=== PATIENT | female | born 1975 ===

== ENCOUNTER → 2017-04-20 | Outpatient (CLI) | payer MEDICAID ==
[2017-04-20 11:55] VITALS: BP 96/79; PULSE 78; RESP 16; TEMP 98; BMI 30.4
[2017-04-20 13:31] LABS: HCT 42.7 % (34.0-46.0); HGB 14.4 gm/dL (11.4-16.0); MCH 31.9 pg (25.0-35.0); MCHC 33.6 g/dL (31.0-37.0); MCV 95.1 fL (80.0-100.0); Mean Platelet Volume 7.3; Platelet Count 262 k/uL (150-450); RBC 4.49 m/uL (3.80-5.40); WBC 6.5 k/uL (3.8-10.6)
[2017-04-20 13:39] LABS: INR 1.1 (<1.2); Partial Thromboplastin Time 23.9 sec (22.0-30.0); Prothrombin Time 11.1 sec (9.0-12.0)
[2017-04-20 13:47] LABS: ALT 27 U/L (9-52); AST 20 U/L (14-36); Albumin 4.4 g/dL (3.5-5.0); Alkaline Phosphatase 56 U/L (38-126); Anion Gap 9 mmol/L; Blood Urea Nitrogen 16 mg/dL (7-17); Calcium 9.8 mg/dL (8.4-10.2); Carbon Dioxide 29 mmol/L (22-30); Chloride 101 mmol/L (98-107); Cholesterol 222 mg/dL (<200); Glucose 107 mg/dL (74-99); HDL Cholesterol 87 mg/dL (40-60); LDL Cholesterol,Calculated 118 mg/dL (0-99); Magnesium 1.8 mg/dL (1.6-2.3); Phosphorous 4.4 mg/dL (2.5-4.5); Potassium 3.6 mmol/L (3.5-5.1); Sodium 139 mmol/L (137-145); Total Bilirubin 0.6 mg/dL (0.2-1.3); Total Protein 7.1 g/dL (6.3-8.2); Triglycerides 86 mg/dL (<150)
[2017-04-20 18:40] LABS: Iron Saturation 24.48 (12.00-45.00)
[2017-04-20 19:26] LABS: Folate, Serum 17.7 ng/mL
[2017-04-20 20:29] LABS: Parathyroid Hormone Intact 40.9 pg/mL (14.0-72.0)
[2017-04-20 20:43] LABS: Hemoglobin A1C 5.3 % (4.0-6.0)
[2017-04-21 12:58] LABS: Zinc, Serum 74 ug/dL (60-130)
[2017-04-24 05:26] LABS: Vitamin B1 45 ug/L (38-122)
[2017-04-24 05:43] LABS: Vitamin A 48 ug/dL (38-106)
[2017-04-26 19:59] LABS: Selenium 127 mcg/L (63-160)
--- NOTE | 2017-06-18 15:23 | P.HPBAR ---
Bariatric H&P - History & Physicial H&P Date: 04/20/17 History & Physicial: Visit/CC: sleeve done in [facility]. Pt pursuing panni Patient initial contact: Initial weight: Initial weight in pounds: Height: 5 ft 1.5 in Initial BMI: Last weight: Current weight: 74.134 kg Current weight in pounds: 163.00 Current BMI: 30.4 [place] body weight (based on NIH guidelines): 48.761 kg Excess body weight loss: The patient is a 42 year-old F who presents for Bariatric Assessment. DATE OF SERVICE: 04/20/2017 REASON FOR CONSULTATION: Panniculitis. HISTORY OF PRESENT ILLNESS: The patient is a 42-year-old female who had a sleeve gastrectomy [facility]. Her highest weight for her 5 foot 1.5 inch frame was 233.3 pounds. Her previous body mass index was 43.5. Today she comes in weighing 163 pounds. She has lost 70 pounds. Body mass index is down from 43.5 to 30.4. She reports moderate discomfort from her pannus. She has a chronic itching including back pain as a resul of her pannus. She has not had recent follow-up with her bariatric provider. Now she presents for further evaluation for possible panniculectomy. At her height of 5 foot 1.5 inches, ideal body weight is 131 pounds. Percent excess weight loss is 69%. She has maintained 70 pound weight loss. PAST MEDICAL HISTORY: 1. Morbid obesity. 2. Body mass index down from 43.5 to 30.4. PAST SURGICAL HISTORY: 1. Sleeve gastrectomy. HOME MEDICATIONS: 1. Multivitamin. ALLERGIES: Denies. SOCIAL HISTORY: No active tobacco use. FAMILY HISTORY: No family history of ulcerative colitis disease or Crohn's disease. Family history of morbid obesity. No lupus in family. No reports of stomach or esophageal cancer. REVIEW OF ORGAN SYSTEMS: CONSTITUTIONAL: At her height of 5 foot 1.5 inches, ideal body weight is 131 pounds. Percent excess weight loss is 69%. She has maintained 70 pound weight loss. Her highest weight for her 5 foot 1.5 inch frame was 233.3 pounds. Her previous body mass index was 43.5. Today she comes in weighing 163 pounds. Body mass index is down from 43.5 to 30.4. HEENT: Denies any active troubles with vision or hearing. No troubles with swallowing. ENDOCRINE: No diabetes. No hypothyroidism. CARDIOVASCULAR: No reports of palpitations or heart attacks or chest pain. History of hypertension. RESPIRATORY: No sleep apnea. No asthma. GI: Denies any bright red blood per rectum. No report of diarrhea but has constipation. MUSCULOSKELETAL: Has lower back pain and joint pain. NEURO: No headaches. No seizure disorders. PSYCH: No acute depression. No anxiety. RHEUMATOLOGIC: No lupus. No rheumatoid arthritis. HEMATOLOGIC: Denies any abnormal bleeding or bruising. No personal history of DVTs. SKIN: No rash. No skin cancer. PHYSICAL EXAM: VITAL SIGNS: Height 5 foot 1.5 inches, weight 163 pounds. BMI 30.4 Vital Signs Temp 98 F 04/20/17 11:42 Pulse 78 04/20/17 11:42 Resp 16 04/20/17 11:42 BP 96/79 04/20/17 11:42 Pulse Ox GENERAL: Well-developed in no acute distress. HEENT: No scleral icterus. Extraocular movements grossly intact. Hears conversational speech. No nasal drainage. NECK: Supple without lymphadenopathy. CHEST: Nonlabored respirations with equal bilateral excursions. CARDIOVASCULAR: Regular rate, regular rhythm. Distal 2+ pulses. ABDOMEN: Obese, soft, nontender, nondistended. Pannus of hyperemia over 5 pounds. Pannus over pubis 5 cm. MUSCULOSKELETAL: No clubbing, cyanosis. Gross strength 5/5 distal lower extremities. No pre-tibial pitting edema. NEURO: No focal or lateralizing signs. Cranial nerves 2 through 12 grossly within normal limits. PSYCH: Appropriate affect. Alert and oriented to person, place and time. SKIN: Good skin turgor. Well perfused. ASSESSMENT: 1. Morbid obesity due to excess calories. 2. Body mass index of 43.5 down to 30.4. 3. Osteoarthritis of lower back. 4. Panniculitis. 5. Status post sleeve gastrectomy. PLAN: 1. Recommend nystatin powder for panniculitis. 2. Recommend bariatric metabolic panel for nutritional deficiencies. 3. Benefits and risks of panniculectomy with described including bleeding, infection, pain, seromas, flap failure, cosmetic deformity. 4. Time off work at least 6 weeks. 5. MARIAN drain care described. 6. Will need high-protein low caloric diet 2 weeks prior to surgery to maximize wound healing. 7. Overnight hospitalization advised. 8. Will need correction of nutritional deficiencies. Laboratory Last Values WBC 6.5 k/uL (3.8-10.6) 04/20/17 13:06 RBC 4.49 m/uL (3.80-5.40) 04/20/17 13:06 Hgb 14.4 gm/dL (11.4-16.0) 04/20/17 13:06 Hct 42.7 % (34.0-46.0) 04/20/17 13:06 MCV 95.1 fL (80.0-100.0) 04/20/17 13:06 MCH 31.9 pg (25.0-35.0) 04/20/17 13:06 MCHC 33.6 g/dL (31.0-37.0) 04/20/17 13:06 RDW 13.0 % (11.5-15.5) 04/20/17 13:06 Plt Count 262 k/uL (150-450) 04/20/17 13:06 PT 11.1 sec (9.0-12.0) 04/20/17 13:06 INR 1.1 (<1.2) 04/20/17 13:06 APTT 23.9 sec (22.0-30.0) 04/20/17 13:06 Sodium 139 mmol/L (137-145) 04/20/17 13:06 Potassium 3.6 mmol/L (3.5-5.1) 04/20/17 13:06 Chloride 101 mmol/L (98-107) 04/20/17 13:06 Carbon Dioxide 29 mmol/L (22-30) 04/20/17 13:06 Anion Gap 9 mmol/L 04/20/17 13:06 BUN 16 mg/dL (7-17) 04/20/17 13:06 Creatinine 0.76 mg/dL (0.52-1.04) 04/20/17 13:06 Est GFR (MDRD) Af Amer >60 (>60 ml/min/1.73 sqM) 04/20/17 13:06 Est GFR (MDRD) Non-Af >60 (>60 ml/min/1.73 sqM) 04/20/17 13:06 Glucose 107 mg/dL (74-99) H 04/20/17 13:[address] Glu mg/dL 105 04/20/17 13:06 Hemoglobin A1c 5.3 % (4.0-6.0) 04/20/17 13:06 Calcium 9.8 mg/dL (8.4-10.2) 04/20/17 13:06 Phosphorus 4.4 mg/dL (2.5-4.5) 04/20/17 13:06 Magnesium 1.8 mg/dL (1.6-2.3) 04/20/17 13:06 Iron 82 ug/dL (50-170) 04/20/17 13:06 TIBC 335 ug/dL (228-460) 04/20/17 13:06 Iron Saturation 24.48 (12.00-45.00) 04/20/17 13:06 Ferritin 17.4 ng/mL (10.0-291.0) 04/20/17 13:06 Total Bilirubin 0.6 mg/dL (0.2-1.3) 04/20/17 13:06 AST 20 U/L (14-36) 04/20/17 13:06 ALT 27 U/L (9-52) 04/20/17 13:06 Alkaline Phosphatase 56 U/L (38-126) 04/20/17 13:06 Total Protein 7.1 g/dL (6.3-8.2) 04/20/17 13:06 Albumin 4.4 g/dL (3.5-5.0) 04/20/17 13:06 Prealbumin 23.0 mg/dL (18.0-42.0) 04/20/17 13:06 Triglycerides 86 mg/dL (<150) 04/20/17 13:06 Cholesterol 222 mg/dL (<200) H 04/20/17 13:06 LDL Cholesterol, Calc 118 mg/dL (0-99) H 04/20/17 13:06 HDL Cholesterol 87 mg/dL (40-60) H 04/20/17 13:06 Vitamin A 48 ug/dL (38-106) 04/20/17 13:06 Vitamin B1 45 ug/L (38-122) 04/20/17 13:06 Vitamin B12 600.0 pg/mL (200.0-944.0) 04/20/17 13:06 Vitamin D 25-Hydroxy 32.0 ng/mL (30.0-100.0) 04/20/17 13:06 Folate 17.7 ng/mL 04/20/17 13:06 TSH 0.430 mIU/L (0.465-4.680) L 04/20/17 13:06 PTH Intact 40.9 pg/mL (14.0-72.0) 04/20/17 13:06 Copper 1046 ug/L (810-1990) 04/20/17 13:06 Selenium 127 mcg/L (63-160) 04/20/17 13:06 Zinc 74 ug/dL (60-130) 04/20/17 13:06 Past Medical History History of Any Multi-Drug Resistant Organisms: None Reported Smoking Status: Unknown if ever smoked Surgical - Exam Vital Signs Temp Pulse Resp BP 98 F 78 16 96/79 04/20/17 11:42 04/20/17 11:42 04/20/17 11:42 04/20/17 11:42 Results - Labs 04/20/17 13:06 04/20/17 13:06 Bariatric Checklist Checklist: Plan: Checklist: EGD: 1. Hiatal hernia: 2. H. Pylori: HgbA1c: Vitamin D: Smoking: Unknown if ever smoked Primary care physician referral: Psychiatry clearance: Cardiology clearance: Sleep study: Diet journal: VTE risk score: VTE risk level: Rehab needs at discharge:
== END | disposition home or self-care (01) ==
LOC: BARWHC3 11:01
PROVIDERS: ATTEND Surgery Plastic and Reconstructive Surgery
DX: M79.3 Panniculitis, unspecified (principal); M47.816 Spondylosis without myelopathy or radiculopathy, lumbar region; E66.01 Morbid (severe) obesity due to excess calories; E21.1 Secondary hyperparathyroidism, not elsewhere classified; E89.1 Postprocedural hypoinsulinemia; K90.9 Intestinal malabsorption, unspecified; E55.9 Vitamin D deficiency, unspecified; K76.9 Liver disease, unspecified; N19 Unspecified kidney failure; K50.90 Crohn's disease, unspecified, without complications; Z68.30 Body mass index [BMI] 30.0-30.9, adult; Z79.899 Other long term (current) drug therapy; Z98.84 Bariatric surgery status
CPT/HCPCS: 36415; 80053; 80061; 82306; 82525; 82607; 82728; 82746; 83036; 83540; 83550; 83735; 83970; 84100; 84134; 84255; 84425; 84443; 84590; 84630; 85027; 85610; 85730; 99211

== ENCOUNTER → 2017-09-14 | Outpatient (CLI) | payer MEDICAID ==
[2017-09-14 15:46] VITALS: BP 101/62; PULSE 97; TEMP 98.2; BMI 29.9
--- NOTE | 2017-10-01 22:52 | P.PN ---
Subjective Progress Note Date: 09/14/17 DATE OF SERVICE: 09/14/2017 REASON FOR CONSULTATION: Panniculitis. HISTORY OF PRESENT ILLNESS: Domo Alex is a 42-year-old female who had a sleeve gastrectomy [facility]. She is maintained over 60% weight loss beyond 1 year. She has had chronic skin infections from her pannus despite treatment for over a year. Now she presents for panniculectomy. Her highest weight for her 5 foot 1.5 inch frame was 233.3 pounds. Her previous body mass index was 43.5. Today she comes in weighing 161 pounds. She has lost 72 pounds. Body mass index is down from 43.5 to 30.0. At her height of 5 foot 1.5 inches, ideal body weight is 131 pounds. Percent excess weight loss is 71 %. She has maintained 72 pound weight loss. She has lost 2 pounds in 5 months. PAST MEDICAL HISTORY: 1. Morbid obesity. 2. Body mass index down from 43.5 to 30.0. PAST SURGICAL HISTORY: 1. Sleeve gastrectomy. HOME MEDICATIONS: 1. Multivitamin. ALLERGIES: Denies. SOCIAL HISTORY: No active tobacco use. FAMILY HISTORY: No family history of ulcerative colitis disease or Crohn's disease. Family history of morbid obesity. No lupus in family. No reports of stomach or esophageal cancer. REVIEW OF ORGAN SYSTEMS: CONSTITUTIONAL: Her highest weight for her 5 foot 1.5 inch frame was 233.3 pounds. Her previous body mass index was 43.5. Today she comes in weighing 161 pounds. She has lost 72 pounds. Body mass index is down from 43.5 to 30.0. At her height of 5 foot 1.5 inches, ideal body weight is 131 pounds. Percent excess weight loss is 71 %. She has maintained 72 pound weight loss. She has lost 2 pounds in 5 months. HEENT: Denies any active troubles with vision or hearing. No troubles with swallowing. ENDOCRINE: No diabetes. No hypothyroidism. CARDIOVASCULAR: No reports of palpitations or heart attacks or chest pain. History of hypertension. RESPIRATORY: No sleep apnea. No asthma. GI: Denies any bright red blood per rectum. No report of diarrhea but has constipation. MUSCULOSKELETAL: Has lower back pain and joint pain. NEURO: No headaches. No seizure disorders. PSYCH: No acute depression. No anxiety. RHEUMATOLOGIC: No lupus. No rheumatoid arthritis. HEMATOLOGIC: Denies any abnormal bleeding or bruising. No personal history of DVTs. SKIN: No rash. No skin cancer. PHYSICAL EXAM: VITAL SIGNS: Height 5 foot 1.5 inches, weight 161 pounds. BMI 30.0 Vital Signs Temp 98.2 F 09/14/17 15:42 Pulse 97 09/14/17 15:42 Resp BP 101/62 09/14/17 15:42 Pulse Ox GENERAL: Well-developed in no acute distress. HEENT: No scleral icterus. Extraocular movements grossly intact. Hears conversational speech. No nasal drainage. NECK: Supple without lymphadenopathy. CHEST: Nonlabored respirations with equal bilateral excursions. CARDIOVASCULAR: Regular rate, regular rhythm. Distal 2+ pulses. ABDOMEN: Obese, soft, nontender, nondistended. Pannus weight over 5 pounds. Hyperemia present. MUSCULOSKELETAL: No clubbing, cyanosis. Gross strength 5/5 distal lower extremities. No pre-tibial pitting edema. NEURO: No focal or lateralizing signs. Cranial nerves 2 through 12 grossly within normal limits. PSYCH: Appropriate affect. Alert and oriented to person, place and time. SKIN: Good skin turgor. Well perfused. ASSESSMENT: 1. Morbid obesity due to excess calories. 2. Body mass index of 43.5 down to 30.0. 3. Osteoarthritis of lower back. 4. Panniculitis. 5. Status post sleeve gastrectomy. PLAN: 1. She has maintained over 70% excess weight loss beyond 1 year. 2. She has used nystatin powder for more than 6 months with improvement of symptoms. 3. Recommend panniculectomy. Benefits and risks of panniculectomy with described including bleeding, infection, pain, seromas, flap failure, cosmetic deformity. 4. MARIAN drain care described. 5. Will need high-protein low caloric diet 2 weeks prior to surgery to maximize wound healing. Objective - Vital Signs Vital signs: Vital Signs Temp 98.2 F 09/14/17 15:42 Pulse 97 09/14/17 15:42 Resp BP 101/62 09/14/17 15:42 Pulse Ox - Labs CBC & Chem 7: 09/14/17 12:28 09/14/17 12:28
== END | disposition home or self-care (01) ==
LOC: BARWHC3 11:04
PROVIDERS: ATTEND Surgery Plastic and Reconstructive Surgery
DX: Z09 Encounter for follow-up examination after completed treatment for conditions other than malignant neoplasm (principal); E66.01 Morbid (severe) obesity due to excess calories; M79.3 Panniculitis, unspecified; L98.8 Other specified disorders of the skin and subcutaneous tissue; M47.9 Spondylosis, unspecified; Z98.84 Bariatric surgery status; Z68.30 Body mass index [BMI] 30.0-30.9, adult; Z79.899 Other long term (current) drug therapy
CPT/HCPCS: 99211

== ENCOUNTER 2017-10-09 06:11 | Inpatient (IN) | payer MEDICAID ==
[2017-09-28 17:43] VITALS: BMI 30.1
[~2017-10-09 06:11] MED LIST: DEXAMETHASONE SOD PHOSPHATE 10 MG/ML 1 ML VIAL IV ONE; LACTATED RINGERS 1,000 ML IV SCH; LIDOCAINE 1% 20 ML VIAL (10MG/ML) FOR IV START INTRADERMA PRN; ONDANSETRON ODT 4 MG TAB PO ONE; SCOPOLAMINE 1.5MG/72HR PATCH TRANSDERM ONE; ceFAZolin IN SWFI 2 GM/20 ML SYRINGE IVP ONE
--- NOTE | 2017-10-09 07:30 | P.GSHP ---
History of Present Illness H&P Date: 10/09/17 DATE OF SERVICE: 10/09/2017 REASON FOR CONSULTATION: Panniculitis. HISTORY OF PRESENT ILLNESS: Domo Alex is a 42-year-old female who had a sleeve gastrectomy [facility]. She is maintained over 60% weight loss beyond 1 year. She has had chronic skin infections from her pannus despite treatment for over a year. Now she presents for panniculectomy. Her highest weight for her 5 foot 1.5 inch frame was 233.3 pounds. Her previous body mass index was 43.5. Today she comes in weighing 161 pounds. She has lost 72 pounds. Body mass index is down from 43.5 to 30.0. At her height of 5 foot 1.5 inches, ideal body weight is 131 pounds. Percent excess weight loss is 71 %. She has maintained 72 pound weight loss. She has lost 2 pounds in 5 months. PAST MEDICAL HISTORY: 1. Morbid obesity. 2. Body mass index down from 43.5 to 30.0. PAST SURGICAL HISTORY: 1. Sleeve gastrectomy. HOME MEDICATIONS: 1. Multivitamin. ALLERGIES: Denies. SOCIAL HISTORY: No active tobacco use. FAMILY HISTORY: No family history of ulcerative colitis disease or Crohn's disease. Family history of morbid obesity. No lupus in family. No reports of stomach or esophageal cancer. REVIEW OF ORGAN SYSTEMS: CONSTITUTIONAL: Her highest weight for her 5 foot 1.5 inch frame was 233.3 pounds. Her previous body mass index was 43.5. Today she comes in weighing 161 pounds. She has lost 72 pounds. Body mass index is down from 43.5 to 30.0. At her height of 5 foot 1.5 inches, ideal body weight is 131 pounds. Percent excess weight loss is 71 %. She has maintained 72 pound weight loss. She has lost 2 pounds in 5 months. HEENT: Denies any active troubles with vision or hearing. No troubles with swallowing. ENDOCRINE: No diabetes. No hypothyroidism. CARDIOVASCULAR: No reports of palpitations or heart attacks or chest pain. History of hypertension. RESPIRATORY: No sleep apnea. No asthma. GI: Denies any bright red blood per rectum. No report of diarrhea but has constipation. MUSCULOSKELETAL: Has lower back pain and joint pain. NEURO: No headaches. No seizure disorders. PSYCH: No acute depression. No anxiety. RHEUMATOLOGIC: No lupus. No rheumatoid arthritis. HEMATOLOGIC: Denies any abnormal bleeding or bruising. No personal history of DVTs. SKIN: No rash. No skin cancer. PHYSICAL EXAM: VITAL SIGNS: Height 5 foot 1.5 inches, weight 161 pounds. BMI GENERAL: Well-developed in no acute distress. HEENT: No scleral icterus. Extraocular movements grossly intact. Hears conversational speech. No nasal drainage. NECK: Supple without lymphadenopathy. CHEST: Nonlabored respirations with equal bilateral excursions. CARDIOVASCULAR: Regular rate, regular rhythm. Distal 2+ pulses. ABDOMEN: Obese, soft, nontender, nondistended. Pannus weight over 5 pounds. Hyperemia present. MUSCULOSKELETAL: No clubbing, cyanosis. Gross strength 5/5 distal lower extremities. No pre-tibial pitting edema. NEURO: No focal or lateralizing signs. Cranial nerves 2 through 12 grossly within normal limits. PSYCH: Appropriate affect. Alert and oriented to person, place and time. SKIN: Good skin turgor. Well perfused. ASSESSMENT: 1. Morbid obesity due to excess calories. 2. Body mass index of 43.5 down to 30.0. 3. Osteoarthritis of lower back. 4. Panniculitis. 5. Status post sleeve gastrectomy. PLAN: 1. She has maintained over 70% excess weight loss beyond 1 year. 2. She has used nystatin powder for more than 6 months with improvement of symptoms. 3. Recommend panniculectomy. Benefits and risks of panniculectomy with described including bleeding, infection, pain, seromas, flap failure, cosmetic deformity. 4. MARIAN drain care described. 5. Will need high-protein low caloric diet 2 weeks prior to surgery to maximize wound healing. Past Medical History Past Medical History: Asthma, Hyperlipidemia Additional Past Medical History / Comment(s): HX gestational diabetes. XAVIER VARICOSE VEINS TREATED. PANNUS History of Any Multi-Drug Resistant Organisms: MRSA Date of last positivie culture/infection: 2009 MDRO Source:: groin Past Surgical History: Bariatric Surgery, Section, Tubal Ligation Additional Past Surgical History / Comment(s): 08/2015 sleeve gastrectomy. Vein Stripping, ABLATED GREATER SAFFENOUS XAVIER AND LESSER XAVIER. c section x 3 Past Anesthesia/Blood Transfusion Reactions: Previous Problems w/ Anesthesia Additional Past Anesthesia/Blood Transfusion Reaction / Comment(s): AWAKENED DURING EXTUBATION Smoking Status: Never smoker - Past Family History Mother Family Medical History: Deep Vein Thrombosis (DVT) Medications and Allergies Home Medications Medication Instructions Recorded Confirmed Type Cholecalciferol [Vitamin D3] 6,000 unit PO DAILY 07/12/17 10/09/17 History Krill Oil 500 mg PO BID 07/12/17 10/09/17 History L.acidoph,Paracasei, B.lactis 1 cap PO DAILY 07/12/17 10/09/17 History [Probiotic] Multivitamin with Iron 1 tab PO DAILY 07/12/17 10/09/17 History [Multivitamins with Iron] Bcp (Unsure Name) 1 tab PO DAILY 09/28/17 10/09/17 History Cetirizine HCl [Zyrtec] 10 mg PO DAILY PRN 09/28/17 10/09/17 History Ferrous Sulfate [Feosol] 325 mg PO Q24H 09/28/17 10/09/17 History Montelukast [Singulair] 10 mg PO DAILY PRN 09/28/17 10/09/17 History valACYclovir HCL [Valtrex] 2,000 mg PO Q12HR PRN 09/28/17 10/09/17 History Allergies Allergy/AdvReac Type Severity Reaction Status Date / Time apple Allergy Rash/Hives Verified 10/09/17 06:27 Beef Containing Products Allergy Dyspnea Verified 10/09/17 06:27 [Beef] latex Allergy Dyspnea Verified 10/09/17 06:27 mold Allergy Dyspnea Verified 10/09/17 06:27 morphine Allergy Rash/Hives Verified 10/09/17 06:27 shellfish derived [Lobster] AdvReac Dyspnea Verified 10/09/17 06:27 Surgical - Exam Vital Signs Temp Pulse BP Pulse Ox 97.7 F 59 L 113/77 100 10/09/17 06:36 10/09/17 06:36 10/09/17 06:36 10/09/17 06:36
[2017-10-09] MEDS ORDERED: LACTATED RINGERS 1,000 ML IV ONE (09:58)
[2017-10-09] MEDS ORDERED: METOCLOPRAMIDE 5 MG/ML 2 ML VIAL IVP PRN (10:16)
[2017-10-09] MEDS ORDERED: HYDROcodone/APAP 5-325MG 1 EACH TAB PO PRN (10:16)
[2017-10-09] MEDS ORDERED: ACETAMINOPHEN IV (For NPO) 1,000 MG in EMPTY BAG 1 BAG IVPB ONE (10:16)
[2017-10-09] MEDS ORDERED: TRIMETHOBENZAMIDE 100 MG/ML 2 ML VIAL IM PRN (10:16)
[2017-10-09] MEDS ORDERED: NALOXONE 0.4 MG/ML 1 ML VIAL IV PRN (10:16)
[2017-10-09] MEDS ORDERED: ONDANSETRON 4 MG/2 ML VIAL IVP PRN ×2 (10:16)
--- NOTE | 2017-10-09 10:16 | P.OP ---
Date of Procedure: 10/09/17 Description of Procedure: SURGEON: IRIS MATSON MD PREOPERATIVE DIAGNOSES: 1. Morbid obesity due to excess calories. 2. Body mass index of 43.5 down to 30.0. 3. Osteoarthritis of lower back. 4. Panniculitis. 5. Status post sleeve gastrectomy. 6. Central adiposity POSTOPERATIVE DIAGNOSES: 1. Morbid obesity due to excess calories. 2. Body mass index of 43.5 down to 30.0. 3. Osteoarthritis of lower back. 4. Panniculitis. 5. Status post sleeve gastrectomy. 6. Central adiposity OPERATION: 1. Panniculectomy, 4.04 pounds. ANESTHESIA: General ESTIMATED BLOOD LOSS: 100 mL SPECIMENS REMOVED: Pannus 4.04 pounds. COMPLICATIONS: None. CONDITION: Stable. DRAINS: Two #19 Iraj drains below abdominal flap extending through the pubis. OPERATIVE FINDINGS: 1. Pannus weighing 4.04 pounds, excised. INDICATIONS: The patient is a 42-year-old female status post sleeve gastrectomy more than 1 year out. Her highest weight was 233 pounds. Her body mass index was 43.5. Today she comes in weighing 162 pounds. She has lost 72 pounds. Her percent excess weight loss is 70%. Despite medical therapy with prescription powders, she has developed severe medical refractory panniculitis. Her body mass index has been reduced to 30.1. She reports medically refractory panniculitis. Given her clinical symptoms, including massive weight loss, she elected for surgical intervention with a panniculectomy. Benefits and risks of the procedure including bleeding, infection, risk of flap failure, abdominal wall seromas, chronic pain were described at length. Informed consent was obtained. DESCRIPTION: In the preanesthesia care unit the patient was marked with an indelible marker. She had also been given heparin subcutaneously. The patient was brought into the operating room and laid in supine position. After general induction, a Burnett catheter was placed. The abdomen was then prepped and draped in standard sterile fashion using ChloraPrep. The skin was prepped as far laterally to the back, inferiorly to the upper thighs and superiorly to above the bilateral breasts. A timeout protocol was confirmed with the surgical team regarding patient's name , procedure to be performed, including preoperative medications. She had received Ancef 2 grams IV antibiotics. Once the time-out protocol was confirmed with the surgical team, the patient was re-marked with indelible marker whereby the midline of the xiphoid to the mons pubis was marked. The anterior/superior iliac spine along the bilateral hips was also marked. Approximately 8 cm above the pubis commissure a transverse incision was made for the inferior portion of the flap. Using a #10 blade, the incision was taken from the midline laterally to above the anterior/ superior iliac spine, initially on the left side of the patient and then on the right side of the patient. Electro-Bovie cautery was used to control for hemostasis. The dissection was taken down to the level of the fascia. Landmarks used were the xiphoid process as well as the bilateral costal margins for the superior margin. Care was taken to avoid any creation of dog ears during the dissection. Hemostasis was once again checked with electro-Bovie cautery and all defects were addressed. Attention was now brought to closure of the flap. Using stainless steel skin hammad, the midline was once again marked of the upper flap as well as the pubic commissure. The patient was placed in a flexed position of approximately 20 degrees at the hips. The pannus was extended inferiorly to the feet. The upper flap was created once the excess skin was excised. Again care was taken to avoid any dog ears along the lateral aspect of the incisions. Once excised, the pannus was weighed at 4.04 pounds. The upper and lower flaps were reapproximated at the midline and then laterally to the skin with skin hammad. Once reapproximated, the skin was closed in layers using 0 Vicryl for the superficial fascial system followed by running 3- 0 Monocryl for the deep dermis in a running subcuticular fashion. Prior to skin closure, two round #19 Iraj drains were placed underneath the flap and brought out just inferior to the incision along the pubis. Drain stitch using 2-0 nylon was placed. Once the incision was closed, bulb suction was attached. Hemostasis was checked. At the end of the procedure, the needle, sponge and instrument count was verified correct. Exofin tape was placed along the length of the incision. Optifoam dressings were applied over the incision and used as a drain sponge. The patient was then transferred to a hospital bed in a beach chair position. An abdominal binder was placed and marked. The patient was taken to the postanesthesia care unit in stable condition, awake and extubated. Total time for procedure from skin to skin was 94 minutes. The intraoperative findings were discussed with her parents who was pleased with the level of care.
[2017-10-09] MEDS ORDERED: MONTELUKAST 10 MG TAB PO PRN (10:18)
[2017-10-09] MEDS ORDERED: LORATADINE 10 MG TAB PO PRN (10:18)
[2017-10-09] MEDS ORDERED: valACYclovir HCL 1,000 MG TABLET PO PRN (10:18)
[2017-10-09] MEDS: fentaNYL (PF) 50 MCG/ML 2 ML AMP IV PRN ×2 (10:19→10:35)
[2017-10-09 10:27] VITALS: RESP 16
[2017-10-09] MEDS ORDERED: DEXTROSE 5%-0.9% NACL 1,000 ML IV SCH (10:30)
[2017-10-09] MEDS: HYDROmorphone 4 MG TABLET PO PRN ×2 (12:05→16:28)
--- NOTE | 2017-10-09 14:45 | P.PN ---
Subjective Progress Note Date: 10/09/17 Principal diagnosis: Panniculitis The patient is a 42-year-old female status post panniculectomy. Her pain is well-controlled. Her family is at bedside. She demonstrates understanding of her MARIAN drains. She is eager to go home. Objective - Vital Signs Vital signs: Vital Signs Temp 98 F 10/09/17 11:00 Pulse 56 L 10/09/17 13:00 Resp 16 10/09/17 13:00 BP 106/61 10/09/17 13:00 Pulse Ox 98 10/09/17 13:00 Intake & Output 10/08/17 10/09/17 10/09/17 18:59 06:59 18:59 Intake Total 100 1100 Output Total 545 Balance 100 555 Weight 73.482 kg Intake: IV 100 950 Oral 150 Output: Drainage 20 Left Groin 0 RIGHT SUPRAPUBIC 20 Urine 400 Estimated Blood Loss 125 - Exam GENERAL: Well developed and in no acute distress. Pleasant. HEENT: No sclera icterus. Extraocular movements grossly intact. Moist buccal mucosa. Head is atraumatic, normocephalic. Hears conversational speech. No nasal drainage. NECK: Supple without lymphadenopathy. No JV distention. CHEST: Non-labored respirations and equal bilateral excursions. CARDIOVASCULAR: Regular rate and rhythm. Palpable 2+ radial pulses. ABDOMEN: Soft, nontender. Nondistended. Dressings clean dry and intact. Abdominal binder present. MUSCULOSKELETAL: No clubbing, cyanosis or edema. NEUROLOGIC: No focal or lateralizing signs. PSYCH: Appropriate affect. Alert and oriented to person, place and time. Assessment and Plan (1) Panniculitis Current Visit: Yes Status: Acute Code(s): M79.3 - PANNICULITIS, UNSPECIFIED SNOMED Code(s): 35313651 (2) S/P laparoscopic sleeve gastrectomy Current Visit: Yes Status: Acute Code(s): Z98.84 - BARIATRIC SURGERY STATUS SNOMED Code(s): 600304050 Plan: 1. She is doing well. May discharge home.
--- NOTE | 2017-10-09 14:49 | P.DS ---
Providers Date of admission: 10/09/17 06:11 Expected date of discharge: 10/09/17 Attending physician: Gris Joiner Primary care physician: Stated None - Discharge Diagnosis(es) (1) Panniculitis Current Visit: Yes Status: Acute (2) S/P laparoscopic sleeve gastrectomy Current Visit: Yes Status: Acute Hospital Course: The patient is a 42-year-old female status post panniculectomy. Pain is well- controlled. No reports of issues. Patient deemed stable for home. Procedures: Panniculectomy, 4.04 pounds Patient Condition at Discharge: Good Plan - Discharge Summary Discharge Rx Participant: Yes New Discharge Prescriptions: New Bisacodyl [Dulcolax] 5 mg PO DAILY PRN #10 tablet.dr PRN Reason: Constipation Ondansetron Odt [Zofran Odt] 4 mg PO Q8HR PRN #9 tab PRN Reason: Nausea Simethicone 40 mg/0.6 ml Drops [Mylicon Drops] 40 mg PO PCHS PRN #30 ml PRN Reason: Gas Hydrocodone/Acetaminophen [[place] 5-325] 1 - 2 each PO Q6HR PRN #30 tab PRN Reason: Pain Continue Multivitamin with Iron [Multivitamins with Iron] 1 tab PO DAILY L.acidoph,Paracasei, B.lactis [Probiotic] 1 cap PO DAILY Cholecalciferol [Vitamin D3] 6,000 unit PO DAILY Ferrous Sulfate [Iron (65 MG Elemental)] 325 mg PO Q48H Montelukast [Singulair] 10 mg PO DAILY PRN PRN Reason: ASTHMA SX Cetirizine HCl [Zyrtec] 10 mg PO DAILY PRN PRN Reason: ALLERGY,ASTHMA SX valACYclovir HCL [Valtrex] 2,000 mg PO Q12HR PRN PRN Reason: Cold Sores Bcp (Unsure Name) 1 tab PO DAILY Discontinued Krill Oil 500 mg PO BID Discharge Medication List Cholecalciferol [Vitamin D3] 6,000 unit PO DAILY 07/12/17 [History] L.acidoph,Paracasei, B.lactis [Probiotic] 1 cap PO DAILY 07/12/17 [History] Multivitamin with Iron [Multivitamins with Iron] 1 tab PO DAILY 07/12/17 [ History] Bcp (Unsure Name) 1 tab PO DAILY 09/28/17 [History] Cetirizine HCl [Zyrtec] 10 mg PO DAILY PRN 09/28/17 [History] Ferrous Sulfate [Iron (65 MG Elemental)] 325 mg PO Q48H 09/28/17 [History] Montelukast [Singulair] 10 mg PO DAILY PRN 09/28/17 [History] valACYclovir HCL [Valtrex] 2,000 mg PO Q12HR PRN 09/28/17 [History] Bisacodyl [Dulcolax] 5 mg PO DAILY PRN #10 tablet. 10/09/17 [Rx] Hydrocodone/Acetaminophen [[place] 5-325] 1 - 2 each PO Q6HR PRN #30 tab 10/09/17 [Rx] Ondansetron Odt [Zofran Odt] 4 mg PO Q8HR PRN #9 tab 10/09/17 [Rx] Simethicone 40 mg/0.6 ml Drops [Mylicon Drops] 40 mg PO PCHS PRN #30 ml [Rx] Follow up Appointment(s)/Referral(s): [facility] [[facility]-STAFF] - 10/12/17 Patient Instructions/Handouts: *Surgery [facility] - Scopalamine Patch Instructions, Jin-Herman Drain Care (GEN), Abdominal Binder (DC), Panniculectomy (DC) Activity/Diet/Wound Care/Special Instructions: No lifting over 4 pounds in 4 weeks. Do not shower. May use hand cloth for washing only. No bathtub soaks. Record outputs MARIAN. Abdominal binder on at all times except for bathing. Discharge Disposition: HOME SELF-CARE
[2017-10-09 15:11] VITALS: BP 96/56; PULSE 65; TEMP 97.9
[2017-10-09] MEDS ORDERED: ceFAZolin IN SWFI 2 GM/20 ML SYRINGE IVP SCH (16:00)
[2017-10-09] MEDS ORDERED: FAMOTIDINE 20 MG TAB PO SCH (21:00)
[2017-10-10] MEDS ORDERED: ENOXAPARIN 30 MG/0.3 ML SYRINGE SQ SCH (09:00)
== END 2017-10-09 18:00 | disposition home or self-care (01) | DRG 581 ==
LOC: 2ORMAIN 06:11 → 3SUR 10:02
PROVIDERS: ADMIT Surgery Plastic and Reconstructive Surgery; ATTEND Surgery Plastic and Reconstructive Surgery
PROC: 0W0F0ZZ Alteration of Abdominal Wall, Open Approach (ICD-10-PCS; principal; 2017-10-09 07:30)
DX: M79.3 Panniculitis, unspecified (principal); E66.01 Morbid (severe) obesity due to excess calories; M47.9 Spondylosis, unspecified; E78.5 Hyperlipidemia, unspecified; J45.909 Unspecified asthma, uncomplicated; Z86.32 Personal history of gestational diabetes; Z86.14 Personal history of Methicillin resistant Staphylococcus aureus infection; Z68.30 Body mass index [BMI] 30.0-30.9, adult; Z98.51 Tubal ligation status; Z86.718 Personal history of other venous thrombosis and embolism; Z79.899 Other long term (current) drug therapy; Z88.6 Allergy status to analgesic agent; Z91.040 Latex allergy status; Z91.013 Allergy to seafood; Z91.018 Allergy to other foods; Z98.84 Bariatric surgery status
CPT/HCPCS: 81025

== ENCOUNTER → 2017-10-11 | Outpatient (CLI) | payer MEDICAID ==
[2017-10-11 15:57] VITALS: BP 100/66; PULSE 62; RESP 16; TEMP 98; BMI 30.2
--- NOTE | 2017-10-11 16:03 | P.PN ---
Subjective Progress Note Date: 10/11/17 DATE OF SERVICE: 10/11/2017 REASON FOR CONSULTATION: Panniculitis. HISTORY OF PRESENT ILLNESS: Domo Alex is a 42-year-old female who had a sleeve gastrectomy [facility]. She is maintained over 60% weight loss beyond 1 year. She has had chronic skin infections from her pannus despite treatment for over a year. Now she presents for panniculectomy. She was last seen 10/11/2017. She had 4 pounds removed. Pain is well controlled. Her highest weight for her 5 foot 1.5 inch frame was 233.3 pounds. Her previous body mass index was 43.5. Today she comes in weighing 161 pounds. She has lost 72 pounds. Body mass index is down from 43.5 to 30.0. At her height of 5 foot 1.5 inches, ideal body weight is 131 pounds. Percent excess weight loss is 71 %. She has maintained 72 pound weight loss. PAST MEDICAL HISTORY: 1. Morbid obesity. 2. Body mass index down from 43.5 to 30.0. PAST SURGICAL HISTORY: 1. Sleeve gastrectomy. HOME MEDICATIONS: 1. Multivitamin. ALLERGIES: Denies. SOCIAL HISTORY: No active tobacco use. FAMILY HISTORY: No family history of ulcerative colitis disease or Crohn's disease. Family history of morbid obesity. No lupus in family. No reports of stomach or esophageal cancer. REVIEW OF ORGAN SYSTEMS: CONSTITUTIONAL: Her highest weight for her 5 foot 1.5 inch frame was 233.3 pounds. Her previous body mass index was 43.5. Today she comes in weighing 161 pounds. She has lost 72 pounds. Body mass index is down from 43.5 to 30.0. At her height of 5 foot 1.5 inches, ideal body weight is 131 pounds. Percent excess weight loss is 71 %. She has maintained 72 pound weight loss. She has lost 2 pounds in 5 months. HEENT: Denies any active troubles with vision or hearing. No troubles with swallowing. ENDOCRINE: No diabetes. No hypothyroidism. CARDIOVASCULAR: No reports of palpitations or heart attacks or chest pain. History of hypertension. RESPIRATORY: No sleep apnea. No asthma. GI: Denies any bright red blood per rectum. No report of diarrhea but has constipation. MUSCULOSKELETAL: Has lower back pain and joint pain. NEURO: No headaches. No seizure disorders. PSYCH: No acute depression. No anxiety. RHEUMATOLOGIC: No lupus. No rheumatoid arthritis. HEMATOLOGIC: Denies any abnormal bleeding or bruising. No personal history of DVTs. SKIN: No rash. No skin cancer. PHYSICAL EXAM: VITAL SIGNS: Height 5 foot 1.5 inches, weight 161 pounds. BMI 30.0 Vital Signs Temp 98 F 10/11/17 15:41 Pulse 62 10/11/17 15:41 Resp 16 10/11/17 15:41 BP 100/66 10/11/17 15:41 Pulse Ox Intake & Output 10/10/17 10/11/17 10/11/17 18:59 06:59 18:59 Weight 73.936 kg GENERAL: Well-developed in no acute distress. HEENT: No scleral icterus. Extraocular movements grossly intact. Hears conversational speech. No nasal drainage. NECK: Supple without lymphadenopathy. CHEST: Nonlabored respirations with equal bilateral excursions. CARDIOVASCULAR: Regular rate, regular rhythm. Distal 2+ pulses. ABDOMEN: incisions are clean, dry and intact. Removed Optifoam. MARIAN is serosanguinous MUSCULOSKELETAL: No clubbing, cyanosis. Gross strength 5/5 distal lower extremities. No pre-tibial pitting edema. NEURO: No focal or lateralizing signs. Cranial nerves 2 through 12 grossly within normal limits. PSYCH: Appropriate affect. Alert and oriented to person, place and time. SKIN: Good skin turgor. Well perfused. ASSESSMENT: 1. Morbid obesity due to excess calories. 2. Body mass index of 43.5 down to 30.0. 3. Osteoarthritis of lower back. 4. Panniculitis. 5. Status post sleeve gastrectomy. PLAN: 1. MARIAN drain care described. 2. Target activity of November 20. 3. Wear abdominal binder at all times. 4. Follow up next week. 5. Antibiotic dressings placed. Objective - Vital Signs Vital signs: Vital Signs Temp 98 F 10/11/17 15:41 Pulse 62 10/11/17 15:41 Resp 16 10/11/17 15:41 BP 100/66 10/11/17 15:41 Pulse Ox Intake & Output 10/10/17 10/11/17 10/11/17 18:59 06:59 18:59 Weight 73.936 kg
== END | disposition home or self-care (01) ==
LOC: BARWHC3 14:48
PROVIDERS: ATTEND Surgery Plastic and Reconstructive Surgery
DX: M79.3 Panniculitis, unspecified (principal); M19.90 Unspecified osteoarthritis, unspecified site; E66.01 Morbid (severe) obesity due to excess calories; Z68.30 Body mass index [BMI] 30.0-30.9, adult; Z98.84 Bariatric surgery status; Z79.899 Other long term (current) drug therapy
CPT/HCPCS: 99211

== ENCOUNTER → 2017-10-18 | Outpatient (CLI) | payer MEDICAID ==
--- NOTE | 2017-10-18 16:42 | P.PN ---
Subjective Progress Note Date: 10/18/17 DATE OF SERVICE: 10/18/2017 CHIEF COMPLAINT: Status post panniculectomy HISTORY OF PRESENT ILLNESS: Domo Alex is a 42-year-old female who had a sleeve gastrectomy [facility] over 1 year. She is status post panniculectomy 10/09/2017. She had 4 pounds of skin removed. She is 1 week out. Her highest weight for her 5 foot 1.5 inch frame was 233.3 pounds. Her previous body mass index was 43.5. Today she comes in weighing 159 pounds from her previous weight 163. She has lost 4 pounds in 1 week. She has lost 74 pounds, lifetime. Body mass index is down from 43.5 to 29.6. At her height of 5 foot 1.5 inches, ideal body weight is 131 pounds. Percent excess weight loss is 73%. She is doing very well. She is eating at least 60 grams of protein. Pain is controlled. No fevers or chills. PHYSICAL EXAM: VITAL SIGNS: Height 5 foot 1.5 inches, weight 159 pounds. BMI 29.6 Vital Signs Temp 98.2 F 10/18/17 16:51 Pulse 87 10/18/17 16:51 Resp 16 10/18/17 16:51 BP 110/72 10/18/17 16:51 Pulse Ox GENERAL: Well-developed in no acute distress. HEENT: No scleral icterus. Extraocular movements grossly intact. Hears conversational speech. No nasal drainage. NECK: Supple without lymphadenopathy. CHEST: Nonlabored respirations with equal bilateral excursions. CARDIOVASCULAR: Regular rate, regular rhythm. Distal 2+ pulses. ABDOMEN: MARIAN is serosanguinous. Dermabond tape is removed. Incisions are well approximated. MUSCULOSKELETAL: No clubbing, cyanosis. Gross strength 5/5 distal lower extremities. NEURO: No focal or lateralizing signs. Cranial nerves 2 through 12 grossly within normal limits. PSYCH: Appropriate affect. Alert and oriented to person, place and time. SKIN: Good skin turgor. Well perfused. ASSESSMENT: 1. Morbid obesity due to excess calories. 2. Body mass index of 43.5 down to 29.6. 3. Osteoarthritis of lower back. 4. Panniculitis. 5. Status post sleeve gastrectomy. 6. Status post panniculectomy PLAN: 1. Follow-up next week. 2. Wounds cleansed with Chloroprep and covered with binder. 3. Increase protein intake to 80 grams. 4. Limit activity. 5. Recommend maintain her drains.
[2017-10-18 17:05] VITALS: BP 110/72; PULSE 87; RESP 16; TEMP 98.2; BMI 29.5
== END | disposition home or self-care (01) ==
LOC: BARWHC3 15:01
PROVIDERS: ATTEND Surgery Plastic and Reconstructive Surgery
DX: M79.3 Panniculitis, unspecified (principal); E66.01 Morbid (severe) obesity due to excess calories; Z68.29 Body mass index [BMI] 29.0-29.9, adult; Z98.84 Bariatric surgery status
CPT/HCPCS: 99211

== ENCOUNTER → 2017-10-25 | Outpatient (CLI) | payer MEDICAID ==
[2017-10-25 13:42] VITALS: BP 114/73; PULSE 94; RESP 16; TEMP 97.5; BMI 29.7
--- NOTE | 2017-10-25 13:53 | P.PN ---
Subjective Progress Note Date: 10/25/17 DATE OF SERVICE: 10/25/2017 CHIEF COMPLAINT: Status post panniculectomy HISTORY OF PRESENT ILLNESS: Domo Alex is a 42-year-old female who had a sleeve gastrectomy [facility] over 1 year. She is status post panniculectomy 10/09/2017. She had 4 pounds of skin removed. She is 2 weeks out. Her highest weight for her 5 foot 1.5 inch frame was 233.3 pounds. Her previous body mass index was 43.5. Today she comes in weighing 160 pounds from 159 pounds 1 week ago. She has lost 73 pounds, lifetime. Body mass index is down from 43.5 to 29.7. At her height of 5 foot 1.5 inches, ideal body weight is 131 pounds. Percent excess weight loss is 72%. MARIAN on the left less than 20 mL. MARIAN on the right over 35 mL daily. No infection. PHYSICAL EXAM: VITAL SIGNS: Height 5 foot 1.5 inches, weight 160 pounds. BMI 29.7 Vital Signs Temp 97.5 F L 10/25/17 13:39 Pulse 94 10/25/17 13:39 Resp 16 10/25/17 13:39 BP 114/73 10/25/17 13:39 Pulse Ox GENERAL: Well-developed in no acute distress. HEENT: No scleral icterus. Extraocular movements grossly intact. Hears conversational speech. No nasal drainage. NECK: Supple without lymphadenopathy. CHEST: Nonlabored respirations with equal bilateral excursions. CARDIOVASCULAR: Regular rate, regular rhythm. Distal 2+ pulses. ABDOMEN: MARIAN is serosanguinous. Incisions are well approximated. MARIAN on the left removed. Binder placed very snug. No infection. MUSCULOSKELETAL: No clubbing, cyanosis. Gross strength 5/5 distal lower extremities. NEURO: No focal or lateralizing signs. Cranial nerves 2 through 12 grossly within normal limits. PSYCH: Appropriate affect. Alert and oriented to person, place and time. SKIN: Good skin turgor. Well perfused. ASSESSMENT: 1. Morbid obesity due to excess calories. 2. Body mass index of 43.5 down to 29.7. 3. Osteoarthritis of lower back. 4. Panniculitis. 5. Status post sleeve gastrectomy. 6. Status post panniculectomy PLAN: 1. October remove drain when fluid is less than 20 mL on the remaining MARIAN. 2. Follow up November 08 Objective - Vital Signs Vital signs: Vital Signs Temp 97.5 F L 10/25/17 13:39 Pulse 94 10/25/17 13:39 Resp 16 10/25/17 13:39 BP 114/73 10/25/17 13:39 Pulse Ox Intake & Output 10/24/17 10/25/17 10/25/17 18:59 06:59 18:59 Weight 72.575 kg
== END | disposition home or self-care (01) ==
LOC: BARWHC3 13:07
PROVIDERS: ATTEND Surgery Plastic and Reconstructive Surgery
DX: Z48.817 Encounter for surgical aftercare following surgery on the skin and subcutaneous tissue (principal); E66.01 Morbid (severe) obesity due to excess calories; M79.3 Panniculitis, unspecified; Z68.29 Body mass index [BMI] 29.0-29.9, adult; Z98.84 Bariatric surgery status
CPT/HCPCS: 99211

== ENCOUNTER → 2017-11-08 | Outpatient (CLI) | payer MEDICAID ==
--- NOTE | 2017-11-08 13:15 | P.PN ---
Subjective Progress Note Date: 11/08/17 DATE OF SERVICE: 11/08/2017 HPI: Looks great! Feels well. No abdominal swelling. No infection. PLAN: 1. Follow up as needed. 2. Drain she removed at home. 3. Iron as needed. PLAN DATE OF SERVICE: 10/25/2017 CHIEF COMPLAINT: Status post panniculectomy HISTORY OF PRESENT ILLNESS: Domo Alex is a 42-year-old female who had a sleeve gastrectomy [facility] over 1 year. She is status post panniculectomy 10/09/2017. She had 4 pounds of skin removed. She is 2 weeks out. Her highest weight for her 5 foot 1.5 inch frame was 233.3 pounds. Her previous body mass index was 43.5. Today she comes in weighing 160 pounds from 159 pounds 1 week ago. She has lost 73 pounds, lifetime. Body mass index is down from 43.5 to 29.7. At her height of 5 foot 1.5 inches, ideal body weight is 131 pounds. Percent excess weight loss is 72%. MARIAN on the left less than 20 mL. MARIAN on the right over 35 mL daily. No infection. PHYSICAL EXAM: VITAL SIGNS: Height 5 foot 1.5 inches, weight 160 pounds. BMI 29.7 Vital Signs Temp 97.5 F L 10/25/17 13:39 Pulse 94 10/25/17 13:39 Resp 16 10/25/17 13:39 BP 114/73 10/25/17 13:39 Pulse Ox GENERAL: Well-developed in no acute distress. HEENT: No scleral icterus. Extraocular movements grossly intact. Hears conversational speech. No nasal drainage. NECK: Supple without lymphadenopathy. CHEST: Nonlabored respirations with equal bilateral excursions. CARDIOVASCULAR: Regular rate, regular rhythm. Distal 2+ pulses. ABDOMEN: MARIAN is serosanguinous. Incisions are well approximated. MARIAN on the left removed. Binder placed very snug. No infection. MUSCULOSKELETAL: No clubbing, cyanosis. Gross strength 5/5 distal lower extremities. NEURO: No focal or lateralizing signs. Cranial nerves 2 through 12 grossly within normal limits. PSYCH: Appropriate affect. Alert and oriented to person, place and time. SKIN: Good skin turgor. Well perfused. ASSESSMENT: 1. Morbid obesity due to excess calories. 2. Body mass index of 43.5 down to 29.7. 3. Osteoarthritis of lower back. 4. Panniculitis. 5. Status post sleeve gastrectomy. 6. Status post panniculectomy PLAN: 1. May remove drain when fluid is less than 20 mL on the remaining MARIAN. 2. Follow up November 08
[2017-11-08 13:17] VITALS: BP 105/66; PULSE 77; RESP 16; TEMP 97.7; BMI 29.9
== END | disposition home or self-care (01) ==
LOC: BARWHC3 12:53
PROVIDERS: ATTEND Surgery Plastic and Reconstructive Surgery
DX: Z48.817 Encounter for surgical aftercare following surgery on the skin and subcutaneous tissue (principal); E66.01 Morbid (severe) obesity due to excess calories; M47.9 Spondylosis, unspecified; M79.3 Panniculitis, unspecified; Z68.29 Body mass index [BMI] 29.0-29.9, adult; Z98.84 Bariatric surgery status; Z97.8 Presence of other specified devices
CPT/HCPCS: 99211